=== PATIENT | male | born 2000 | race Caucasian/White ===

== ENCOUNTER 2022-02-18 15:26 | Emergency (ER) | payer BC ==
[~2022-02-18] VITALS: Ht 190.5 cm; Wt 91.0 kg
[2022-02-18 15:47] VITALS: BP 128/92
[2022-02-18 17:56] LABS: Urine Bacteria NONE SEEN /hpf (None Seen); Urine Blood Negative /uL (Negative); Urine Mucus FEW (None Seen); Urine Specific Gravity 1.029 (1.001-1.035); Urine WBC 1 /hpf (0 - 3)
[2022-02-18 18:32] LABS: Basophils # (auto) 0 10 ^3/uL (0-0.2); Basophils % (auto) 0.3 % (0.0-2.0); Eosinophils # (auto) 0.2 10 ^3/uL (0-0.8); Eosinophils % (auto) 1.1 % (0.0-7.0); Hematocrit 45.2 % (41.0-53.0); Hemoglobin 14.9 g/dL (13.5-17.5); Lymphocytes # (auto) 2.4 10 ^3/uL (0.4-5.4); Lymphocytes % (auto) 15.8 % (10.0-50.0); Mean Corpuscular Hemoglobin 28.2 pg (28.0-32.0); Mean Corpuscular Volume 85.5 fL (80.0-100.0); Monocytes % (auto) 6.6 % (0.0-12.0); Neutrophils # (auto) 11.3 10 ^3/uL (1.6-8.6); Neutrophils % (auto) 76.2 % (37.0-80.0); Red Blood Cells 5.28 10^6/uL (4.5-5.90); Red Cell Distribution Width 13.8 % (11.8-14.3); White Blood Cell 14.9 10^3/uL (4.4-10.8)
[2022-02-18 18:49] LABS: Albumin 3.6 g/dL (3.4-5.0); BUN/Creatinine Ratio 12.6; Calcium 9.3 mg/dL (8.5-10.1); Potassium 4.2 mmol/L (3.5-5.1)
[2022-02-18 18:52] LABS: Bilirubin, Total 0.5 mg/dL (0.2-1.0); Total Protein 8.2 g/dL (6.4-8.2)
== END 2022-02-18 20:31 | disposition home or self-care (01) ==
LOC: EDBD 15:26 → ER 15:26
DX: K52.9 Noninfective gastroenteritis and colitis, unspecified (principal); Z88.2 Allergy status to sulfonamides
CPT/HCPCS: 36415; 74176; 80053; 81001; 85025

== ENCOUNTER 2022-04-02 06:46 | Inpatient (IN) | payer BC ==
[~2022-04-02] VITALS: Ht 190.5 cm; Wt 90.6 kg
[2022-04-02] MEDS ORDERED: ONDANSETRON ODT 4 MG TAB PO ONE (07:45)
[2022-04-02] MEDS ORDERED: ACETAMINOPHEN 325 MG TAB PO ONE (07:45)
[2022-04-02 07:59] LABS: Mean Corpuscular Hemoglobin 28.4 pg (28.0-32.0); Mean Corpuscular Hgb Conc. 34.2 g/dL (32.0-36.0); Red Cell Distribution Width 13.2 % (11.8-14.3)
[2022-04-02 08:01] LABS: Hemoglobin 12.7 g/dL (13.5-17.5); Mean Corpuscular Volume 83.1 fL (80.0-100.0); Red Blood Cells 4.45 10^6/uL (4.5-5.90); White Blood Cell 26.1 10^3/uL (4.4-10.8)
[2022-04-02 08:13] LABS: Band Neutrophils % (manual) 0; Basophils % (manual) 0 (0.0-2.0); Blast Cells 0; Eosinophils % (manual) 0 (0-7); Metamyelocytes % 0; Myelocytes % 0; Promyelocytes % 0; Reactive Lymphocytes 0
[2022-04-02 08:30] LABS: Albumin 2.7 g/dL (3.4-5.0); Calcium 9.3 mg/dL (8.5-10.1); Potassium 4.5 mmol/L (3.5-5.1)
[2022-04-02] MEDS ORDERED: cefTRIAXone 1GM/50ML D5W 50 ML IV ONE (08:30)
[2022-04-02] MEDS ORDERED: SODIUM CHLORIDE 0.9% 1,000 ML IV ONE (08:30)
[2022-04-02 08:33] LABS: BUN/Creatinine Ratio 7.5; Bilirubin, Total 0.6 mg/dL (0.2-1.0); Total Protein 7.6 g/dL (6.4-8.2)
[2022-04-02 09:38] LABS: Urine Bacteria NONE SEEN /hpf (None Seen); Urine Blood Negative /uL (Negative); Urine Mucus FEW (None Seen); Urine WBC 1 /hpf (0 - 3)
[2022-04-02] MEDS ORDERED: IBUPROFEN 800 MG TAB PO ONE (12:30)
[2022-04-02] MEDS ORDERED: NITROGLYCERIN 0.4 MG SL TAB SL PRN (13:15)
[2022-04-02] MEDS ORDERED: MORPHINE SULFATE INJ 2 MG/ml SYRG IV PRN (13:15)
[2022-04-02] MEDS: SODIUM CHLORIDE 0.9% 1,000 ML IV SCH ×2 (13:24→23:08)
[2022-04-02 13:28] LABS: Lymphocytes % (manual) 9 (10.0-50.0); Monocytes % (manual) 9 (0-12)
[2022-04-02] MEDS: ONDANSETRON HCL 4 MG/2 ML VIAL IV PRN (17:06)
[2022-04-02 22:00] VITALS: BP 127/69
[2022-04-02] MEDS ORDERED: HYDROcodone-ACET 5/325MG TAB PO PRN (23:00)
[2022-04-02] MEDS: HYDROcodone-ACET 5/325MG TAB PO PRN (23:26)
[2022-04-03] MEDS: ACETAMINOPHEN 325 MG TAB PO PRN ×3 (03:01→22:36)
[2022-04-03 05:00] VITALS: BP 119/72
[2022-04-03] MEDS: SODIUM CHLORIDE 0.9% 1,000 ML IV SCH ×3 (05:15→20:52)
[2022-04-03 06:27] LABS: Calcium 8.5 mg/dL (8.5-10.1); Potassium 4.5 mmol/L (3.5-5.1)
[2022-04-03 06:33] LABS: Albumin 2.1 g/dL (3.4-5.0); BUN/Creatinine Ratio 6.3; Bilirubin, Total 0.4 mg/dL (0.2-1.0); Hematocrit 32.8 % (41.0-53.0); Hemoglobin 10.8 g/dL (13.5-17.5); Mean Corpuscular Hemoglobin 27.6 pg (28.0-32.0); Mean Corpuscular Hgb Conc. 33.1 g/dL (32.0-36.0); Mean Corpuscular Volume 83.6 fL (80.0-100.0); Red Blood Cells 3.93 10^6/uL (4.5-5.90); Red Cell Distribution Width 13.1 % (11.8-14.3); Total Protein 6.2 g/dL (6.4-8.2); White Blood Cell 29.9 10^3/uL (4.4-10.8)
[2022-04-03 07:10] LABS: Basophils % (manual) 0 (0.0-2.0); Blast Cells 0; Eosinophils % (manual) 0 (0-7); Metamyelocytes % 0; Myelocytes % 0; Promyelocytes % 0; Reactive Lymphocytes 0
[2022-04-03 08:00] VITALS: BP 121/73
[2022-04-03 08:13] LABS: Band Neutrophils % (manual) 6; Lymphocytes % (manual) 10 (10.0-50.0); Monocytes % (manual) 6 (0-12)
[2022-04-03] MEDS: cefTRIAXone 1GM/50ML D5W 50 ML IV SCH (10:20)
[2022-04-03] MEDS: HYDROcodone-ACET 5/325MG TAB PO PRN (10:22)
[2022-04-03 12:00] VITALS: BP 123/64
[2022-04-03] MEDS ORDERED: GOLYTELY 4L KIT PO ONE (14:15)
[2022-04-03] MEDS: MORPHINE SULFATE INJ 2 MG/ml SYRG IV PRN ×2 (15:13→22:34)
[2022-04-03] MEDS: metroNIDAZOLE 500MG/100ML 100 ML IV SCH ×2 (15:13→21:17)
[2022-04-03 16:00] VITALS: BP 115/66
[2022-04-03 19:10] LABS: INR 1.14 (0.9-1.15)
[2022-04-03 20:30] LABS: Hepatitis A Ab IgM Negative
[2022-04-03 20:31] LABS: Hepatitis B Core IgM Negative; Hepatitis C Antibody Negative (Negative)
[2022-04-03 23:53] VITALS: BP 106/62
[2022-04-04] MEDS: SODIUM CHLORIDE 0.9% 1,000 ML IV SCH ×4 (05:15→21:28)
[2022-04-04] MEDS: ONDANSETRON HCL 4 MG/2 ML VIAL IV PRN (05:37)
[2022-04-04] MEDS: metroNIDAZOLE 500MG/100ML 100 ML IV SCH ×3 (05:37→21:29)
[2022-04-04 05:50] VITALS: BP 123/77
[2022-04-04 08:00] VITALS: BP 120/76
[2022-04-04 08:30] VITALS: BP 120/76
[2022-04-04] MEDS ORDERED: diphenhdrAMINE HCL 50 MG/1 ML VL ONE (08:51)
[2022-04-04] MEDS ORDERED: SODIUM CHLORIDE LOCK 0 ML ONE (08:51)
[2022-04-04] MEDS ORDERED: MIDAZOLAM HCL 5 MG/ML-1ML VIAL ONE (08:51)
[2022-04-04] MEDS ORDERED: fentaNYL CITRATE 100 MCG/2 ML VL ONE ×2 (08:52→12:56)
[2022-04-04] MEDS: cefTRIAXone 1GM/50ML D5W 50 ML IV SCH (09:07)
[2022-04-04] MEDS ORDERED: NALOXONE HCL 0.4 MG/ML VIAL ONE (09:29)
[2022-04-04] MEDS ORDERED: FLUMAZENIL 0.1 MG/ML INJ 10ML MDV IV ONE (09:29)
[2022-04-04] MEDS ORDERED: EPINEPHrine HCL 1 MG/10 ML SYRG ONE (09:30)
[2022-04-04 12:00] VITALS: BP 128/81
[2022-04-04] MEDS ORDERED: MIDAZOLAM HCL 2MG/2ML 2ml VIAL (1mg/ml) ONE (12:56)
[2022-04-04] MEDS ORDERED: ONDANSETRON HCL 4 MG/2 ML VIAL ONE (12:59)
[2022-04-04] MEDS ORDERED: LIDOCAINE 2% (LOCAL ANESTH.) PF 5ml SDV ONE (12:59)
[2022-04-04] MEDS ORDERED: PROPOFOL 10 MG/ML 20 ML IV ONE ×2 (13:00→13:17)
[2022-04-04 16:00] VITALS: BP 128/72
[2022-04-04] MEDS: HYDROcodone-ACET 5/325MG TAB PO PRN (21:29)
[2022-04-04 22:00] VITALS: BP 123/75
[2022-04-05 05:00] VITALS: BP 130/78
[2022-04-05] MEDS: metroNIDAZOLE 500MG/100ML 100 ML IV SCH ×2 (05:37→14:12)
[2022-04-05] MEDS: SODIUM CHLORIDE 0.9% 1,000 ML IV SCH ×2 (05:58→14:12)
[2022-04-05] MEDS: HYDROcodone-ACET 5/325MG TAB PO PRN (06:00)
[2022-04-05] MEDS: cefTRIAXone 1GM/50ML D5W 50 ML IV SCH (08:27)
[2022-04-05 08:30] VITALS: BP 121/76
[2022-04-05] MEDS ORDERED: LEVO500T31 PO (11:22)
[2022-04-05] MEDS ORDERED: METR500T PO (11:22)
[2022-04-05] MEDS ORDERED: HYDR-4902 PO (11:35)
[2022-04-05 14:47] VITALS: BP 115/73
== END 2022-04-05 16:08 | disposition home or self-care (01) | DRG 872 ==
LOC: ER 06:46 → OVERFLOW 13:11 → WEST WING 21:42
PROVIDERS: ADMIT Registered Nurse; ATTEND Family Medicine
PROC: 0DBB8ZX Excision of Ileum, Via Natural or Artificial Opening Endoscopic, Diagnostic (ICD-10-PCS; principal; 2022-04-04 12:58)
DX: A41.9 Sepsis, unspecified organism (principal); K50.00 Crohn's disease of small intestine without complications; N13.6 Pyonephrosis; N43.3 Hydrocele, unspecified; E86.0 Dehydration; Z20.822 Contact with and (suspected) exposure to COVID-19; M54.50 Low back pain, unspecified
CPT/HCPCS: 36415; 74176; 76705; 76870; 80053; 80074; 81001; 83605; 83690; 85007; 85027; 85610; 86256; 86703; 87040; 87045; 87086; 96365; 96375; G0378; J0696; J2001; J2250; J2405; J2704; J3490; Q0162

== ENCOUNTER 2024-12-12 20:18 | Emergency (ER) | payer BC, OTHER ==
[~2024-12-12] VITALS: Ht 193 cm; Wt 110.0 kg
[~2024-12-12 20:18] MED LIST: HYDR-4902 PO; LEVO500T31 PO; METR500T PO
--- NOTE | 2024-12-12 20:56 | ED.PDOC ---
History of Present Illness HPI Comments 24-year-old male who came to ER for weakness. Patient has history of Crohn's disease, states for the past 2 weeks he has been having intermittent episodes of weakness and dizziness. Denies any changes in bowel habits. 1 hour ago, he had a near syncopal attack prompting him to come to the emergency room for evaluation and management Chief Complaint: Weakness Time Seen by MD: 20:56 Primary Care Provider: MADELAINEK PMD Reviewed Notes: Nurses Notes Allergies: Coded Allergies: Sulfa Antibiotics (Verified Allergy, Mild, 02/18/22) Home Meds Active Scripts Hydrocodone-Acetaminophen (Hydrocodone Bitartrate/AC 5-325 mg) 1 Tab Tab, 1 TAB PO Q6HR PRN, #30 TAB Prov:SCARLETT REINA MD 04/05/22 Levofloxacin (Levaquin) 500 Mg Tab, 500 MG PO DAILY, #14 TAB Prov:SCARLETT REINA MD 04/05/22 Metronidazole (Flagyl) 500 Mg Tab, 500 MG PO TID, #42 TAB Prov:SCARLETT REINA MD 04/05/22 Information Source: Patient Mode of Arrival: Ambulatory Severity: Moderate Timing: Hours Duration: Since onset Past Medical History PAST MEDICAL HISTORY: Denies Past Medical History (Other): Crohn's disease Surgical History: Denies all surgeries Family History Family History: Reviewed,noncontributory to illness Social History Smoker: Non-Smoker Alcohol: Denies ETOH Use Drugs: Denies Drug Use Lives In: Home Constitutional: denies: chills, diaphoresis, fatigue, fever, malaise, sweats, weakness, others EENTM: denies: blurred vision, double vision, ear bleeding, ear discharge, ear drainage, ear pain, ear ringing, eye pain, eye redness, hearing loss, mouth pain, mouth swelling, nasal discharge, nose bleeding, nose congestion, nose pain, photophobia, tearing, throat pain, throat swelling, voice changes, others Respiratory: denies: cough, hemoptysis, orthopnea, SOB at rest, shortness of breath, SOB with excertion, stridor, wheezing, others Cardiovascular: denies: chest pain, dizzy spells, diaphoresis, Dyspnea on exert ion, edema, irregular heart beat, left arm pain, lightheadedness, palpitations, PND, syncope, others Gastrointestinal: denies: abdomen distended, abdominal pain, blood streaked bowels, constipated, diarrhea, dysphagia, difficulty swallowing, hematemesis, melena, nausea, poor appetite, poor fluid intake, rectal bleeding, rectal pain, vomiting, others Genitourinary: denies: burning, dysuria, flank pain, frequency, hematuria, incontinence, penile discharge, penile sore, pain, testicle pain, testicle swelling, urgency, others Neurological: reports: dizziness, fainting, weakness; denies: headache, left sided numbness, left sided weakness, numbness, paresthesia, pre-existing deficit, right sided numbness, right sided weakness, seizure, speech problems, tingling, tremors, others Musculoskeletal: denies: back pain, gout, joint pain, joint swelling, muscle pain, muscle stiffness, neck pain, others Integumetry: denies: bruises, change in color, change in hair/nails, dryness, laceration, lesions, lumps, rash, wounds, others Allergic/Immunocompromised: denies: Difficulty Healing, Frequent Infections, Hives, Itching, others Hematologic/Lymphatic: denies: anemia, blood clots, easy bleeding, easy bruising, swollen glands, others Endocrine: denies: excessive hunger, excessive sweating, excessive thirst, excessive urination, flushing, intolerance to cold, intolerance to heat, unexplained weight gain, unexplained weight loss, others Psychiatric: denies: anxiety, bipolar disorder, depression, hopeless, panic disorder, schizophrenia, sleepless, suicidal, others Physical Exam General Appearance: No Apparent Distress, Normal HEENT: Normal ENT Inspection, Pharynx Normal, TMs Normal Neck: Full Range of Motion, Non-Tender, Normal, Normal Inspection Respiratory: Chest Non-Tender, Lungs Clear, No Accessory Muscle Use, No Respiratory Distress, Normal Breath Sounds Cardiovascular: No Edema, No JVD, No Murmur, No Gallop, Normal Peripheral Pulses, Regular Rate/Rhythm Breast Exam: Deferred Gastrointestinal: No Organomegaly, Non Tender, No Pulsatile Mass, Normal Bowel Sounds, Soft Genitalia: Deferred Pelvic: Deferred Rectal: Deferred Extremities: No calf tenderness, Normal capillary refill, Normal inspection, Normal range of motion, Non-tender, No pedal edema Musculoskeletal : Apperance: Normal Neurologic: Alert, 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 Was a procedure done?: No Differential Dx Considerations may include: Anemia, electrolyte imbalance, viral syndrome, dehydration, Crohn's disease X-Ray, Labs, Meds, VS Vital Signs Date Time Temp Pulse Resp B/P (MAP) Pulse Ox O2 Delivery O2 Flow Rate FiO2 12/13/24 02:27 77 16 Room Air 0 12/13/24 02:10 98.0 77 16 131/71 (91) 98 98.0 12/12/24 21:00 98.6 85 16 136/88 (104) 99 98.6 Lab Test 12/12/24 20:56 12/12/24 20:53 Range/Units White Blood Count 10.7 4.4-10.8 10^3/uL Red Blood Count 5.57 4.5-5.90 10^6/uL Hemoglobin 16.6 13.5-17.5 g/dL Hematocrit 48.0 41.0-53.0 % Mean Corpuscular Volume 86.2 80.0-100.0 fL Mean Corpuscular Hemoglobin 29.9 28.0-32.0 pg Mean Corpuscular Hemoglobin Concent 34.6 32.0-36.0 g/dL Red Cell Distribution Width 13.8 11.8-14.3 % Platelet Count 296 140-450 10^3/uL Mean Platelet Volume 7.7 6.9-10.8 fL Neutrophils (%) (Auto) 53.7 37.0-80.0 % Lymphocytes (%) (Auto) 36.7 10.0-50.0 % Monocytes (%) (Auto) 7.3 0.0-12.0 % Eosinophils (%) (Auto) 1.8 0.0-7.0 % Basophils (%) (Auto) 0.5 0.0-2.0 % Neutrophils # (Auto) 5.7 1.6-8.6 10 ^3/uL Lymphocytes # (Auto) 3.9 0.4-5.4 10 ^3/uL Monocytes # (Auto) 0.8 0-1.3 10 ^3/uL Eosinophils # (Auto) 0.2 0-0.8 10 ^3/uL Basophils # (Auto) 0.1 0-0.2 10 ^3/uL Nucleated Red Blood Cells 0.1 % Sodium Level 140 136-145 mmol/L Potassium Level 4.8 3.5-5.1 mmol/L Chloride Level 104 98-107 mmol/L Carbon Dioxide Level 30 20-31 mmol/L Anion Gap 6 5-15 Blood Urea Nitrogen 12 9-23 mg/dL Creatinine 1.12 0.700-1.30 mg/dL Glomerular Filtration Rate Calc 94 >90 mL/min BUN/Creatinine Ratio 10.7 10.0-20.0 Serum Glucose 81 74-106 mg/dL Calcium Level 11.1 H 8.7-10.4 mg/dL Magnesium Level 2.0 1.6-2.6 mg/dL Total Bilirubin 0.5 0.2-1.0 mg/dL Aspartate Amino Transferase (AST) 15 13-40 U/L Alanine Aminotransferase (ALT) 33 7-40 U/L Alkaline Phosphatase 77 46-116 U/L Total Protein 7.7 5.7-8.2 g/dL Albumin 5.0 H 3.2-4.8 g/dL POC Glucose 78 70-106 mg/dl Time of 1ST Reevaluation: 20:54 Reevaluation 1ST: Unchanged Patient Education/Counseling: Diagnosis, Treatment Family Education/Counseling: No Family Present Departure 1 Departure Time of Disposition: 23:00 Impression: Primary Impression: History of Crohn's disease Additional Impression: Generalized weakness Disposition: 01 HOME / SELF CARE / HOMELESS Condition: Stable Discharged With: Self Critical Care Note Critical Care Time?: No Stability Stability form required: No Heart Score Heart Score: Heart Score Response (Comments) Value History N/A 0 EKG N/A 0 Age N/A 0 Risk Factors N/A 0 Troponin N/A 0 Total 0 I personally scribed for VALENTE BONILLA MD ([email or web address]) on 12/12/24 at 20:56. Electronically submitted by Eric Cordova ([email or web address]). VALENTE BONILLA MD Dec 12, 2024 20:56
[2024-12-12 21:10] LABS: Basophils # (auto) 0.1 10 ^3/uL (0-0.2); Basophils % (auto) 0.5 % (0.0-2.0); Eosinophils # (auto) 0.2 10 ^3/uL (0-0.8); Eosinophils % (auto) 1.8 % (0.0-7.0); Hemoglobin 16.6 g/dL (13.5-17.5); Lymphocytes # (auto) 3.9 10 ^3/uL (0.4-5.4); Lymphocytes % (auto) 36.7 % (10.0-50.0); Mean Corpuscular Hemoglobin 29.9 pg (28.0-32.0); Mean Corpuscular Hgb Conc. 34.6 g/dL (32.0-36.0); Mean Corpuscular Volume 86.2 fL (80.0-100.0); Monocytes # (auto) 0.8 10 ^3/uL (0-1.3); Monocytes % (auto) 7.3 % (0.0-12.0); Neutrophils # (auto) 5.7 10 ^3/uL (1.6-8.6); Neutrophils % (auto) 53.7 % (37.0-80.0); Nucleated Red Blood Cells % 0.1 %; Platelet Count (auto) 296 10^3/uL (140-450); Red Blood Cells 5.57 10^6/uL (4.5-5.90); Red Cell Distribution Width 13.8 % (11.8-14.3); White Blood Cell 10.7 10^3/uL (4.4-10.8)
[2024-12-12 21:22] LABS: Alanine Aminotransferase 33 U/L (7-40); Alkaline Phosphatase 77 U/L (46-116); Anion Gap 6 (5-15); Aspartate Aminotransferase 15 U/L (13-40); BUN/Creatinine Ratio 10.7 (10.0-20.0); Bilirubin, Total 0.5 mg/dL (0.2-1.0); Blood Urea Nitrogen 12 mg/dL (9-23); Calcium 11.1 mg/dL (8.7-10.4); Carbon Dioxide 30 mmol/L (20-31); Chloride 104 mmol/L (98-107); Glucose 81 mg/dL (74-106); Potassium 4.8 mmol/L (3.5-5.1); Sodium 140 mmol/L (136-145); Total Protein 7.7 g/dL (5.7-8.2)
[2024-12-13 02:10] VITALS: BP 131/71; TEMP 98; O2SAT 98
[2024-12-13 02:27] VITALS: PULSE 77; RESP 16
== END 2024-12-12 22:33 | disposition home or self-care (01) ==
LOC: ER 20:18
DX: R53.1 Weakness (principal); K50.90 Crohn's disease, unspecified, without complications; Z88.2 Allergy status to sulfonamides; Z79.899 Other long term (current) drug therapy
CPT/HCPCS: 36415; 80053; 82947; 82962; 83735; 85025